=== PATIENT | female | born 1950 | race Caucasian/White ===

== ENCOUNTER → 2017-01-20 | Outpatient (CLI) | payer OTHER, MEDICARE ==
[~2017-01-20] MED LIST: ACARBOSE25 MG PO; ACCUPRIL PO; ACCUPRIL40 MG PO; ALBUTEROL17 GM INH; ALEVE220 M1 PO; ALTOPREV40 MG PO; AMLODIPINE BESY10 MG PO; ASPIRIN81 M1 PO; BACTRIM DS TABL1 TAB PO; BAYER CHEWABLE81 MG PO; BROMFED DM COU118 ML PO; CELEBREX PO; CIPRO PO; DICLOFENAC PO; GABAPENTIN600 MG PO; GLUCOTROL XL PO; GLUCOTROL XL10 MG PO; HCTZ PO; HYDRALAZINE HCL25 MG PO; IBUPROFEN800 MG PO; KCL PO; LEVO-T50 MCG PO; LIPITOR PO; LOPRESSOR PO; LORTAB PO; MEVACOR PO; NEURONTIN600 MG PO; NEXIUM PO; NORVASC PO; NORVASC10 MG PO; OMEPRAZOLE20 M2 PO; PEN-VEE K PO; PREDNISONE PO; PRILOSEC PO; PRILOSEC20 MG; PRILOSEC20 MG PO; PRINIVIL20 M1 PO; SYNTHROID PO; TAMIFLU75 M1 PO; TYLENOL #3 PO; TYLENOL/CODEINE1 TA1 PO; VOLTAREN75 MG PO; ZITHROMAX1 G/PKT PO; [UNRECOGNIZED DRUG - REMARK]; [UNRECOGNIZED DRUG - REMARK]; [UNRECOGNIZED DRUG - REMARK]; [UNRECOGNIZED DRUG - REMARK]
--- NOTE | ~2017-01-20 | CR141 ---
[facility] A Service of [facility] RADIOLOGY TEXT RESULTS PATIENT: CAMI VARGAS LOCATION: [facility] : 50 UNIT #: [id number] AGE: [address]: LOUISE JEAN-BAPTISTE APRN SEX: F ORDER DR: [id number] [address] [address] [id number] O MR#: [id number] Acc #: [id number] NAME: CAMI VARGAS : 1950 SEX: F STUDY DATE/TIME: 01/20/2017 20:21 UNIT: [facility] ROOM: STUDY DESCRIPTION: CR Hand Min 3 Views Lt Attending Physician: Nina Baxter Referring Physician: Nina Baxter Ordering Physician: Nina Baxter Primary Care Physician: Rosalba Blount M.D. MEDICAL IMAGING REPORT This report is preliminary unless electronic signature is present. EXAM Left hand. HISTORY Joint pain dorsally in the left hand with a palpable knot at the fourth MCP joint. Symptoms for the past 3 weeks. TECHNIQUE Three views of the hand were obtained. FINDINGS Advanced degenerative changes are seen at the first carpometacarpal joint with joint space collapse, subluxation and large osteophytes. Osteophyte formation is also seen with joint space narrowing at the second and third MCP joints. No erosions are seen. Bone mineralization is normal. There is a small osteophyte at the interphalangeal joint of the thumb. No soft tissue calcifications are seen to suggest gout. IMPRESSION Osteoarthritis involving multiple joints as described above most severely involving the first carpometacarpal joint. No acute bony abnormalities are seen. Dictated by... Otto Barr M.D. THIS IS AN ELECTRONICALLY VERIFIED REPORT Otto Barr M.D. at 01/21/2017 4:49 PM RLF/jennifer TD: 01/21/2017 13:52 JOB #: [id number] [facility] A Service of [facility] RADIOLOGY TEXT RESULTS PATIENT: CAMI VARGAS LOCATION: [facility] : 50 UNIT #: [id number] AGE: [address]: LOUISE JEAN-BAPTISTE APRN SEX: F ORDER DR: MEDICAL IMAGING REPORT Page 1 of 1
== END | disposition home or self-care (01) ==
LOC: SRAD 20:15
DX: M25.542 Pain in joints of left hand (principal); M18.12 Unilateral primary osteoarthritis of first carpometacarpal joint, left hand
CPT/HCPCS: 73130